=== PATIENT | female | born 1990 | race Caucasian/White ===

== ENCOUNTER → 2020-09-18 | Day surgery (SDC) | payer MEDICAID ==
[2020-09-13 14:35] LABS: COVID AG,FIA SOURCE NASOPHARYNGEAL
[~2020-09-18] VITALS: Ht 170.2 cm; Wt 73.5 kg
[~2020-09-18] MED LIST: CETI10TA58 PO; CLOT15CR23 TP; DIPH25CA48 PO; EPIN0.3P3 IM; FAMO20 PO; FentaNYL CITRATE-PF 100 MCG/2 ML VIAL ONE; MIDAZOLAM HCL 5 MG/ML VIAL ONE; SODIUM CHLORIDE 0.9% 1,000 ML IV ONE; SODIUM CHLORIDE 0.9% 1,000 ML ONE; TRIA15CR49 TP
== END | disposition home or self-care (01) ==
LOC: SURGERY 10:39
PROVIDERS: ATTEND Internal Medicine Gastroenterology
DX: K62.5 Hemorrhage of anus and rectum (principal); K64.0 First degree hemorrhoids; F41.9 Anxiety disorder, unspecified; F32.9 Major depressive disorder, single episode, unspecified; K21.9 Gastro-esophageal reflux disease without esophagitis; Z88.0 Allergy status to penicillin; Z88.2 Allergy status to sulfonamides; Z79.899 Other long term (current) drug therapy; Z20.828 Contact with and (suspected) exposure to other viral communicable diseases
CPT/HCPCS: 45378; 84703; 87426; C9803; J2250; J3010; J7030